=== PATIENT | female | born 1995 | race Caucasian/White ===

== ENCOUNTER 2017-03-09 19:39 | Outpatient (CLI) | payer OTHER, BC ==
[~2017-03-09 19:39] MED LIST: FLEXERIL5 MG PO; MOTRIN600 MG PO; NAPROSYN500 MG PO; NORCO 5/3251 TABLET PO; PERCOCET 5/31 TABLET PO
[2017-03-09 19:54] VITALS: BP 112/70
[2017-03-09 20:34] LABS: COLOR DK YELLOW ((YELLOW)); LEUKOCYTES MODERATE; SPECIFIC GRAVITY 1.015 (1.000-1.030)
[2017-03-09 20:35] LABS: ADD MIUA? YES; BILIRUBIN NEGATIVE; BLOOD NEGATIVE; GLUCOSE (STRIP) NEGATIVE; KETONES 15; NITRITE NEGATIVE; PH, URINE 6.5 (5-8); PROTEIN (STRIP) 30; UROBILINOGEN 0.2 MG/DL (0.2-1.0)
[2017-03-09 20:44] LABS: RED BLOOD CELLS 0-5 /HPF (0-5)
[2017-03-09 20:45] LABS: EPITHELIAL CELLS NONE SEEN /HPF
[2017-03-09 20:46] LABS: BACTERIA 2+ /HPF; HYALINE CASTS RARE /LPF; MUCUS 1+ /LPF
== END 2017-03-09 20:55 | disposition home or self-care (01) ==
LOC: LDRP-OP 19:39 → 2WEST 19:42 → LDRP-OP 06-27 13:25
PROVIDERS: Obstetrics & Gynecology
DX: O26.892 Other specified pregnancy related conditions, second trimester (principal); Z3A.28 28 weeks gestation of pregnancy; R10.9 Unspecified abdominal pain; E73.9 Lactose intolerance, unspecified; O99.332 Smoking (tobacco) complicating pregnancy, second trimester; F17.200 Nicotine dependence, unspecified, uncomplicated
CPT/HCPCS: 59025; 81003; G0378

== ENCOUNTER 2017-05-26 12:44 | Outpatient (CLI) | payer BC, OTHER ==
[2017-05-26 13:05] VITALS: BP 118/77
[2017-05-26 15:58] LABS: ADD MIUA? YES; BILIRUBIN NEGATIVE; BLOOD MODERATE; COLOR YELLOW ((YELLOW)); GLUCOSE (STRIP) NEGATIVE; KETONES NEGATIVE; LEUKOCYTES SMALL; NITRITE NEGATIVE; PROTEIN (STRIP) NEGATIVE; SPECIFIC GRAVITY 1.004 (1.000-1.030); UROBILINOGEN 0.2 MG/DL (0.2-1.0)
[2017-05-26 16:27] LABS: AMPHETAMINE NEGATIVE (500 ng/mL); COCAINE NEGATIVE (150 ng/mL); METHAMPHETAMINE NEGATIVE (500 ng/mL); OPIATES (MORPHINE) NEGATIVE (100 ng/mL); PHENCYCLIDINE NEGATIVE (25 ng/mL); THC CANNABINOIDS NEGATIVE (50 ng/mL)
[2017-05-26 16:28] LABS: BARBITURATES NEGATIVE (200 ng/mL); BENZODIAZEPINES NEGATIVE (150 ng/mL); INTERNAL CONTROLS VALID? YES; METHADONE NEGATIVE (200 ng/mL); OXYCODONE NEGATIVE (100 ng/mL); PROPOXYPHENE NEGATIVE (300 ng/mL); TRICYCLIC ANTIDEPRESSANTS NEGATIVE (300 ng/mL)
[2017-05-26 16:45] LABS: BACTERIA 1+ /HPF; BUDDING YEAST 1+; EPITHELIAL CELLS 1+ /HPF; MUCUS NONE SEEN /LPF; RED BLOOD CELLS TNTC /HPF (0-5); UCUL ADDED? YES; WHITE BLOOD CELLS 0-5 /HPF (0-5)
[2017-05-26] MEDS ORDERED: MOTRIN800 MG PO (22:47)
== END 2017-05-26 16:19 | disposition home or self-care (01) ==
LOC: LDRP-OP 12:44 → 2WEST 12:45 → LDRP-OP 06-17 21:14
PROVIDERS: Obstetrics & Gynecology
DX: O47.1 False labor at or after 37 completed weeks of gestation (principal); Z3A.39 39 weeks gestation of pregnancy
CPT/HCPCS: 59025; 81003; 87086; G0378

== ENCOUNTER 2017-05-26 19:36 | Inpatient (IN) | payer BC, OTHER ==
[~2017-05-26] VITALS: Ht 157.5 cm; Wt 76.2 kg
[2017-05-26 20:17] VITALS: BP 101/57
[2017-05-26 21:13] VITALS: BP 122/75
[2017-05-26 22:29] VITALS: BP 110/57
[2017-05-26 22:42] VITALS: BP 109/56
[2017-05-26] MEDS ORDERED: MOTRIN800 MG PO (22:47)
[2017-05-26 22:57] VITALS: BP 115/67
[2017-05-26 23:12] VITALS: BP 110/62
[2017-05-27 00:13] VITALS: BP 109/64
[2017-05-27 01:10] VITALS: BP 107/59
[2017-05-27 07:28] VITALS: BP 103/56
[2017-05-27 08:21] LABS: EOSINOPHIL (%) 0.1 % (0-5); HEMATOCRIT 37.8 % (36.0-46.0); IMMATURE GRANULOCYTE (%) 0.7 % (0.0-0.7); IMMATURE GRANULOCYTE COUNT 0.1 K/uL; INSTRUMENT ABS NEUTROPHIL CT 14.5 K/uL; LYMPHOCYTE COUNT 2.3 K/uL (1.0-2.8); MCHC 33.6 G/DL (30.0-36.0); MCV 83.4 FL (83-99); MEAN PLAT.VOLUME 13.4 uM^3 (9.5-12.4); MONOCYTE (%) 9.4 % (3-12); MONOCYTE COUNT 1.8 K/uL (0-0.8); NEUTROPHIL (%) 77.4 % (45-76); NEUTROPHIL COUNT 14.5 K/uL (1.8-6.4); PLATELET COUNT 161 K/uL (156-360); RBC DIS.WIDTH-CV 12.7 % (11.8-14.6); RBC DIS.WIDTH-SD 37.8 % (39-53); RED BLOOD COUNT 4.53 M/uL (3.80-5.20); WHITE BLOOD COUNT 18.7 K/uL (4.1-10.2)
[2017-05-27 15:05] VITALS: BP 99/54
[2017-05-27 22:55] VITALS: BP 113/66
[2017-05-28 07:59] VITALS: BP 105/68
== END 2017-05-28 16:10 | disposition home or self-care (01) | DRG 775 ==
LOC: LDRP-OP 19:36 → 2WEST 19:37 → LDRP-OP 06-17 16:23
PROVIDERS: Nurse Practitioner
DX: O70.0 First degree perineal laceration during delivery (principal); O99.334 Smoking (tobacco) complicating childbirth; F17.200 Nicotine dependence, unspecified, uncomplicated; O99.323 Drug use complicating pregnancy, third trimester; F12.90 Cannabis use, unspecified, uncomplicated; O99.340 Other mental disorders complicating pregnancy, unspecified trimester; F41.9 Anxiety disorder, unspecified; F32.9 Major depressive disorder, single episode, unspecified; Z37.0 Single live birth; Z3A.39 39 weeks gestation of pregnancy
CPT/HCPCS: 85025; J2590